=== PATIENT | male | born 1955 | race Caucasian/White ===

== ENCOUNTER → 2019-08-28 07:47 | Outpatient (BNVA) | payer MEDICARE, SELFPAY | PROVIDERS: PCP Internal Medicine; Referring Provider Licensed Practical Nurse; Visit Provider Psychiatry & Neurology Neurology | DX: M54.12 Radiculopathy, cervical region (principal); M79.601 Pain in right arm; M79.602 Pain in left arm | CPT/HCPCS: 95886; 95910 ==

== ENCOUNTER 2019-09-01 09:30 | Outpatient (RCR) | payer MEDICARE, SELFPAY | END 2019-09-04 23:59 | disposition home or self-care (01) | LOC: SPT 09:30 | PROVIDERS: PCP Internal Medicine; Referring Provider Licensed Practical Nurse; Visit Provider Licensed Practical Nurse | DX: M50.020 Cervical disc disorder with myelopathy, mid-cervical region, unspecified level (principal) | CPT/HCPCS: 97110; 97162 ==

== ENCOUNTER 2019-09-05 06:00 | Outpatient (RCR) | payer MEDICARE, SELFPAY | END 2019-10-03 23:59 | disposition home or self-care (01) | LOC: SPT 06:00 | PROVIDERS: PCP Internal Medicine; Referring Provider Licensed Practical Nurse; Visit Provider Licensed Practical Nurse | DX: M50.020 Cervical disc disorder with myelopathy, mid-cervical region, unspecified level (principal) | CPT/HCPCS: 97110 ==

== ENCOUNTER 2019-10-04 06:00 | Outpatient (RCR) | payer MEDICARE, SELFPAY | END 2019-11-03 23:59 | disposition home or self-care (01) | LOC: SPT 06:00 | PROVIDERS: PCP Internal Medicine; Referring Provider Licensed Practical Nurse; Visit Provider Licensed Practical Nurse | DX: M50.020 Cervical disc disorder with myelopathy, mid-cervical region, unspecified level (principal) | CPT/HCPCS: 97110; 97140 ==

== ENCOUNTER → 2021-07-06 17:37 | Outpatient (BNVA) | payer MEDICARE, SELFPAY | PROVIDERS: PCP Internal Medicine; Referring Provider Nurse Practitioner Family; Visit Provider Surgery | DX: Z20.822 Contact with and (suspected) exposure to COVID-19 (principal) | CPT/HCPCS: 87635 ==

== ENCOUNTER 2021-07-11 09:32 | Day surgery (SDC) | payer MEDICARE, SELFPAY ==
[2021-07-10 14:23] VITALS: BMI 24.6
[2021-07-11] VITALS (11 sets, daily range): BP systolic 135–179; BP diastolic 81–102; PULSE 71–84; RESP 14–20; TEMP 36.4–36.7; O2SAT 92–96
--- NOTE | 2021-07-11 10:08 | W.PM.OPSUD ---
Surgery/Procedure H&P Update DATE OF PROCEDURE: July 11, 2021 DATE H&P PERFORMED: 07/06/21 H&P UPDATE INFORMATION: I have reviewed H&P completed within last 30 days, I have examined patient prior to procedure and No changes to prior documentation PREOP DIAGNOSIS: Right Inguinal Hernia PRIMARY INDICATION FOR PROCEDURE: Right Inguinal Hernia PLANNED PROCEDURE: Operation Date: 07/11/21 11:25 Proposed Procedures p Laparoscopic poss Open Right Inguinal Hernia Repair 39863 K40.90(Right) - Anton Mata MD
[2021-07-11] MEDS: acetaminophen 1,000 MG/100 ML PIGGYBACK 400 MG IV (10:26)
[2021-07-11] MEDS: sodium chloride 0.9% 1,000 ML 30 ML IV (10:26)
--- NOTE | 2021-07-11 10:43 | ECG_ITS ---
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: : 1955 Requested By: Muriel Miller Order Number: [id number] Reading MD: KARISHMA LOOMIS Measurements Intervals Wenden Rate: 61 P: 64 NE: 129 QRS: 54 QRSD: 153 T: -39 QT: 455 QTc: 460 Interpretive Statements SINUS RHYTHM LEFT BUNDLE BRANCH BLOCK [120+ ms QRS DURATION, 80+ ms Q/S IN V1/V2, 85+ ms R IN I/aVL/V5/V6] Compared to ECG 02/11/2018 11:23:17 Sinus bradycardia no longer present Electronically Signed On 07-11-2021 20:09:27 LEAD ADVISOR by KARISHMA LOOMIS [id number]
--- NOTE | 2021-07-11 11:00 | P.ANESASSM_ITS ---
Pre-Anesthetic Assessment Pre-Anesthetic Assessment: Height/Weight: Height 1.85 m Weight 84.822 kg Temp Pulse Resp BP Pulse Ox 97.8 F 76 18 160/102 96 07/11/21 09:54 07/11/21 09:54 07/11/21 09:54 07/11/21 09:54 07/11/21 09:54 Preop Diagnosis: Right Inguinal Hernia Proposed Procedure: Operation Date: 07/11/21 11:25 Proposed Procedures p Laparoscopic poss Open Right Inguinal Hernia Repair [id number] K40.90(Right) - Anton Mata MD Was Beta Eber taken within 24 hours: Yes Was Clonidine taken within 24 hours: N/A Last intake: Intake Last Liquid Date 07/11/21 Last Liquid Time 06:00 Last Solid Date 07/10/21 Last Solid Time 21:00 Social: Social History: Tobacco and No alcohol Exam: Pre-Anes Outpt Exam: alert, oriented x 3, clear to auscultation bilaterally and regular rate & rhythm Airway: Submandibular: WNL Cervical ROM: WNL MP: 2 Dentition: Partials History/ROS: No significant history except as noted Pulmonary: Pulmonary: COPD and ANDREW CV/HEM: CV/HEM: CAD and TX : : None reported Hepatic: Hepatic: None reported GI: GI: GERD Metabolic: Metabolic: None reported Musc/skel: Musc/skel: None reported Comments: Cervical myelopathy Neuropsych: Comments: History of ocular stroke per patient Anesthetic Plan: ASA status: 3 Anesthesia: General and Regional (specify below) Other: Possible TAP block for post op pain control Risk of > 500 ml blood loss (7ml/kg in children): No Meds/Allergies Current Medications: Current Medications Generic Name Dose Route Start Last Admin Trade Name Freq PRN Reason Stop Dose Admin Sodium Chloride 1,000 mls @ 30 ml s/hr 07/11/21 09:45 07/11/21 10:26 Sodium Chloride 0.9% IV 07/12/21 09:44 30 mls/hr .Q24H ANDRE Administration PFSH Anesthesia PFSH: Medical History Cervical disc disorder with myelopathy of mid-cervical region Social History Smoking and tobacco status: current every day smoker Alcohol intake: never Lives independently: Yes Marital status: Life Partner Current occupational status: retired History of recent travel: No Data Anesthesia Cardiac Studies: No Data to Display
[2021-07-11] MEDS: clindamycin 900 MG/50 ML PREMIX 100 MG IV (12:00)
--- NOTE | 2021-07-11 13:49 | P.OP_ITS ---
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 Patient was identified in the holding area ,patient was transferred to the operating room where he was placed in supine position, with both arms were tucked, antibiotic was given with induction, endotracheal tube was placed per anesthesia, Delgadillo catheter was inserted by the circulating nurse and revealed clear urine, prep and drape of the abdomen was done under the usual sterile technique as well as the scrotal area. Time-out was done verifying the patient's name/date of /planned procedure destination after the procedure, all were in agreement. SCDs confirmed to be functioning, preoperative antibiotics administered per protocol, and beta brice protocol was confirmed. A vertical skin incision of 1.2 cm was made with 11 blade knife through the supra umbilicus , incision was carried down to the subcutaneous tissue and deepened to identify the anterior fascia, two stay sutures were applied to the fascia, and safe entrance to the abdominal cavity was achieved, a Stewart trocar technique safe entry to the abdominal cavity was achieved verified by using 10 mm zero degree laparoscopy, switched to a 30 degrees scope,low flow followed by a higher flow of CO2 gas up to 15 mmHg. There was no evidence of injury to intra-abdominal structures from the port entry, attention was deviated to both groins, there was a large direct hernia defect with herniation of peritoneum and preperitoneal fat was noted on the right side, two 5 mm ports were placed on the right and left lateral aspect of the abdomen slightly above the level of the umbilicus, under direct visualization, anesthesia 2% lidocaine local was injected at all trocar sites prior to incisions. Noticed to have adhesions between the small bowel cecum and the peritoneal reflection of the right groin obscuring the site of the right groin hernia, sharp and blunt dissection was done and the indentation of the preperitoneal fat was appreciated. At that point The peritoneum above the level of the iliopubic tract was incised to the right of the midline and dissection was performed to create a preperitoneal space medial to lateral aspect up to anterior superior iliac spine on the right side. Dissection was continued onto the medial aspect and the right spermatic was identified, there was evidence of direct and indirect inguinal hernia .the sac was dissected. As it applied medial to the right inferior epigastric vessels/ dissection was performed to clear the space lateral to the spermatic cord and dorsomedial to it, the hernia sac was reduced and retracted far back.The small indirect inguinal hernia that was dissected in addition to lipoma of the cord that was excised and sent for permanent pathology. Some oozing revealed towards the medial aspect of the dissection and multiple 5 mm clips were applied, suction irrigation was done. Then a large right 3-D mesh was rolled and placed into the abdominal cavity through the Stewart port, after the mesh was introduced it was positioned to lie in the myopectineal orifice and the mesh was unrolled and this covered the entire my myope pectineal orifice. On the lateral aspect of the mesh extended up to the anterior superior iliac spine on the medial aspect the mesh crossed the midline onto the left side, then using absorbable tacks, placed above the iliopubic tract onto the rectus abdominis muscle on the medial aspect and also to the lateral abdominal wall superomedial to the sacroiliac spine, then the mesh was also anchored to the pubis and the José's ligament inferiorly. The peritoneal leaflets were then brought together to cover the mesh and isolated from the other viscera, extra tacks were used to secure the peritoneum in good position. There was small openings in the peritoneal reflection that were approximated by 5 mm clear Final look demonstrated good hemostasis and the mesh in good position, there was a small subserosal hematoma over one of the small bowel loops at the serosa level yet I elected to apply oeywla-yx-gyyki 2-0 silk suture. A total of 20 mL Exparel 40 ml Normal saline 20 ml bupivacaine 0.25% were injected at the remaining of the tacks site and trocar sites as well Final look demonstrated good hemostasis.Then the fascia on the supra umbilical fascial defect was closed using #1 PDS sutures under direct visualization using fascial closure device Leland Schmid.All ports were removed,then the abdomen was desufflated. All skin incisions were closed with 4-0 Monocryl subcuticular suture and Dermabond was applied. The patient tolerated the procedure well, Delgadillo catheter was taken out ,got extubated and was transferred to the recovery area in stable condition All counts of instruments, needles and sponges were completed I was present for the whole entire procedure
[2021-07-11] MEDS: fentaNYL 50 mcg/mL INJ 2mL IVP ×2 (14:14→14:19)
[2021-07-11] MEDS: HYDROcodone-acetaminophen 5-325 mg Tablet 1 TAB PO (14:57)
--- NOTE | 2021-07-11 15:54 | ANE.PACU2 ---
Inpatient post-anesthesia follow up: Airway intact: Yes Vital signs: Temperature 97.8 F Pulse Rate 75 Respiratory Rate 17 Blood Pressure 135/82 Pulse Oximetry 95 Oxygen Delivery Me thod Room Air Oxygen Flow Rate Fraction of Inspir ed Oxygen Hydration adequate: Yes Nausea and vomiting: No Pain level: 4 Mental status: Baseline
== END 2021-07-11 15:42 | disposition home or self-care (01) ==
PROVIDERS: PCP Internal Medicine; Visit Provider Surgery
PROC: (CPT 49650; principal; 2021-07-11 11:15)
DX: K40.90 Unilateral inguinal hernia, without obstruction or gangrene, not specified as recurrent (principal); D17.6 Benign lipomatous neoplasm of spermatic cord; J44.9 Chronic obstructive pulmonary disease, unspecified; I25.10 Atherosclerotic heart disease of native coronary artery without angina pectoris; I25.2 Old myocardial infarction; K21.9 Gastro-esophageal reflux disease without esophagitis; F17.210 Nicotine dependence, cigarettes, uncomplicated
CPT/HCPCS: 49650; 51702; 88302; 88304; 93005; 96365; C1781; C9290; J2405; J2704; J2710; J3010; J3490; J7030

== ENCOUNTER 2021-10-30 09:46 | Outpatient (CLI) | payer MEDICARE, SELFPAY ==
--- NOTE | 2021-10-30 10:03 | USCV_ITS ---
Fer Charles Age: 65 Gender: M : 1955 Exam Date: 10/30/2021 10:19 Ordering Phys: Pankaj Richardosn NP Technologist: Juan Daniel Acevedo [place] [facility] [place]: [place] HISTORY: Diameter (cm) AP x Transverse x Length Velocity (cm/s) Waveform Prox Aorta: 1.87 x 1.84 x 101.20 Mid Aorta: 2.16 x 2.13 x 105.30 Distal Aorta: 3.17 x 3.14 x 76.80 Right Iliac Prox: 0.76 x 1.18 x 153.90 Left Iliac Prox: 0.79 x 1.24 x 124.70 Stent Prox Landing x x Aneurysmal Sac Max x x Lt Lat Sac Dim Rt Lat Sac Dim Stent Dist Landing x x Right Iliac Stent x x Left Iliac Stent x x Right Renal Art Left Renal Art FINDINGS: Comparison: none available. Ectatic abdominal aorta with evidence of atherosclerotic plaque noted. There is evidence of atherosclerotic plaque no significan stenosis in the right common iliac artery. There is evidence of atherosclerotic plaque no significan stenosis in the left common iliac artery. Mild aneurysmal dilatation infrarenal aorta, maximum diameter of 3.2 cm. CONCLUSIONS Mild AAA, maximim diameter of 3.[address] Louise Kumar DO (Electronically Signed) Final Date: 30 October 2021 12:30 S
== END 2021-10-30 09:47 | disposition home or self-care (01) ==
PROVIDERS: PCP Nurse Practitioner Family; Visit Provider Nurse Practitioner Family
DX: I71.4 Abdominal aortic aneurysm, without rupture (principal)
CPT/HCPCS: 93978

== ENCOUNTER → 2022-03-12 14:43 | Outpatient (BNVA) | payer MEDICARE, SELFPAY | PROVIDERS: PCP Nurse Practitioner Family; Referring Provider Nurse Practitioner Family; Visit Provider Nurse Practitioner | DX: G31.84 Mild cognitive impairment of uncertain or unknown etiology (principal); R26.89 Other abnormalities of gait and mobility; M50.020 Cervical disc disorder with myelopathy, mid-cervical region, unspecified level | CPT/HCPCS: 99204 ==

== ENCOUNTER → 2022-03-19 15:17 | Outpatient (BNVA) | payer MEDICARE, SELFPAY | PROVIDERS: PCP Nurse Practitioner Family; Visit Provider Surgery | DX: R19.5 Other fecal abnormalities (principal) | CPT/HCPCS: 99213 ==

== ENCOUNTER 2022-04-20 06:16 | Day surgery (SDC) | payer MEDICARE, SELFPAY ==
[2022-04-18 13:16] VITALS: BMI 25.0
--- NOTE | 2022-04-20 06:29 | P.HP_ITS ---
Same Day Surgery H&P Indication for Procedure/HPI DATE OF PROCEDURE: April 20, 2022 CHIEF COMPLAINT/INDICATIONFOR SURGICAL PROCEDURE: Blood in stool PREOP DIAGNOSIS: Occult blood positive in stool PLANNED PROCEDURE: Operation Date: 04/20/22 08:00 Proposed Procedures p Colonoscopy 62756,Z12.11(Not Applicable) - Anton Mata MD 03/19/2022 This is a pleasant 66 years old gentleman known to me from previous clinical encounter where he did undergo laparoscopic inguinal hernia repair back in July 2020 one of the right side also a lipoma of the right spermatic cord was excised at the time, patient was found to have occult blood positive in stool and was referred to me to discuss colonoscopy. 04/20/2022 Patient is coming today for screening colonoscopy ROS All systems have been reviewed negative except as for the above or per problem list. Medications/Allergies* Home Medications Medication Instructions Recorded Confirmed Type gabapentin 800 mg tablet 800 mg PO DAILY 12/01/19 04/20/22 History trazodone 150 mg tablet 150 mg PO DAILY 12/01/19 04/20/22 History simvastatin 40 mg tablet 40 mg PO DAILY 04/21/20 04/20/22 History tramadol 50 mg tablet 50 mg PO DAILY 07/06/21 04/20/22 History clopidogrel 75 mg tablet (Plavix) 75 mg PO DAILY 07/10/21 04/18/22 History lisinopril 10 mg tablet 10 mg PO DAILY 04/18/22 04/20/22 History Allergies/Adverse Reactions Allergy/AdvReac Type Severity Reaction Status Date / Time Penicillins Allergy Intermediate Passed out Verified 04/20/22 06:30 Pertinent History/Comorbid Conditions* Medical History (Updated 03/23/22 @ 06:29 by Anton Mata MD) Cervical disc disorder with myelopathy of mid-cervical region Gait disorder Mild cognitive impairment Right groin hernia Social History Smoking and tobacco status: current every day smoker Alcohol intake: never Lives independently: Yes Marital status: Life Partner Current occupational status: retired History of recent travel: No Pertinent Exam Findings alert, oriented x 3, regular rate & rhythm and procedure specific exam findings (Abdominal exam nontender nondistended soft) Recommendations Surgery/Procedure today (Colonoscopy with possible biopsy) Coding Level of Care Code Acute 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
[2022-04-20 06:41] VITALS: BP 145/79; PULSE 74; RESP 16; TEMP 36.3; O2SAT 96
[2022-04-20] MEDS: sodium chloride 0.9% 1,000 ML 30 ML IV (06:48)
--- NOTE | 2022-04-20 07:30 | ANES.PREANE2 ---
Pre-Anesthetic Assessment Height/Weight: Height 1.83 m Weight 83.915 kg Temp Pulse Resp BP Pulse Ox O2 Del Method 97.4 F L 74 16 145/79 96 04/20/22 06:41 04/20/22 06:41 04/20/22 06:41 04/20/22 06:41 04/20/22 06:41 04/20/22 06:41 Preop Diagnosis: Occult blood positive in stool Operation Date: 04/20/22 08:00 Proposed Procedures p Colonoscopy 21164,Z12.11(Not Applicable) - Anton Mata MD Familial anesthetic complications: None Was Beta Eber taken within 24 hours: N/A Was Clonidine taken within 24 hours: N/A Last intake: Intake Last Liquid Date 04/19/22 Last Liquid Time 17:00 Last Solid Date 04/18/22 Last Solid Time 00:00 Social No alcohol and No tobacco Exam alert, oriented x 3, clear to auscultation bilaterally and regular rate & rhythm Airway Submandibular: within normal limits Cervical ROM: within normal limits Mallampati: Class II Dentition: false Pulmonary Chronic Obstructive Pulmonary Disease CV/HEM Coronary Artery Disease (Hx of stents ) and Myocardial Infarction Vascular US 10/30/21 ?CONCLUSIONS ?Mild AAA, maximim diameter of 3.2 cm. None reported Hepatic None reported GI None reported Metabolic None reported Musc/skel None reported Neuropsych Cervical myelopathy Anesthetic Plan ASA status: 3 Anesthesia: Anesthesia Evaluation, General and MAC Other: I discussed with the patient risks, goals, and benefits of MAC and general anesthesia. We discussed spectrum of MAC anesthesia including conversion to general as well as possibility of recall of intraoperative stimuli including discomfort/pain. Patient agrees to proceed with MAC. Risk of > 500 ml blood loss (7ml/kg in children): No Medications/Allergies Home Medications Medication Instructions Recorded Confirmed Last Taken Type gabapentin 800 mg tablet 800 mg PO DAILY 12/01/19 04/20/22 04/19/22 History trazodone 150 mg tablet 150 mg PO DAILY 12/01/19 04/20/22 04/19/22 History simvastatin 40 mg tablet 40 mg PO DAILY 04/21/20 04/20/22 04/19/22 History tramadol 50 mg tablet 50 mg PO DAILY 07/06/21 04/20/22 04/19/22 History clopidogrel 75 mg tablet (Plavix) 75 mg PO DAILY 07/10/21 04/18/22 04/18/22 History lisinopril 10 mg tablet 10 mg PO DAILY 04/18/22 04/20/22 04/19/22 History Allergies Allergy/AdvReac Type Severity Reaction Status Date / Time Penicillins Allergy Intermediate Passed out Verified 04/20/22 06:30 Current Medications Generic Name Dose Route Start Last Admin Trade Name Freq PRN Reason Stop Dose Admin Sodium Chloride 1,000 mls @ 30 mls/hr 04/20/22 06:30 04/20/22 06:48 Sodium Chloride 0.9% IV 04/21/22 06:29 30 mls/hr .Q24H ANDRE Administration PFSH Anesthesia Medical History Cervical disc disorder with myelopathy of mid-cervical region Gait disorder Mild cognitive impairment Right groin hernia Social History Smoking and tobacco status: current every day smoker Alcohol intake: never Lives independently: Yes Marital status: Life Partner Current occupational status: retired History of recent travel: No Data Anesthesia Cardiac Studies: No Data to Display
[2022-04-20 08:32] VITALS: BP 146/68; PULSE 54; RESP 14; TEMP 36.2; O2SAT 95
[2022-04-20 08:45] VITALS: BP 150/78; PULSE 56; RESP 20; O2SAT 94
--- NOTE | 2022-04-20 08:52 | ANE.PACU2 ---
Inpatient post-anesthesia follow up: Airway intact: Yes Vital signs: Temperature 97.1 F Pulse Rate 56 Respiratory Rate 20 Blood Pressure 150/78 Pulse Oximetry 94 Oxygen Delivery Me thod Room Air Oxygen Flow Rate Fraction of Inspir ed Oxygen Hydration adequate: Yes Nausea and vomiting: No Pain level: 1 Mental status: Baseline
== END 2022-04-20 08:57 | disposition home or self-care (01) ==
PROVIDERS: PCP Nurse Practitioner Family; Visit Provider Surgery
PROC: 0DJD8ZZ Inspection of Lower Intestinal Tract, Via Natural or Artificial Opening Endoscopic (ICD-10-PCS; CPT 45378; principal; 2022-04-20 08:00)
DX: Z12.11 Encounter for screening for malignant neoplasm of colon (principal); K57.30 Diverticulosis of large intestine without perforation or abscess without bleeding; J44.9 Chronic obstructive pulmonary disease, unspecified; I25.10 Atherosclerotic heart disease of native coronary artery without angina pectoris; Z95.5 Presence of coronary angioplasty implant and graft; I25.2 Old myocardial infarction; F17.210 Nicotine dependence, cigarettes, uncomplicated
CPT/HCPCS: 45378; J2704; J7030

== ENCOUNTER 2022-08-24 07:06 | Outpatient (CLI) | payer MEDICARE, SELFPAY ==
--- NOTE | 2022-08-24 | MR_ITS ---
WS: [id number] MRI RIGHT HIP NONCONTRAST TECHNIQUE: Axial T1, axial T2 fat sat, coronal T1, coronal STIR, sagittal T2 fat sat, sagittal T1, an d sagittal T2 fat sat, of both hips. CLINICAL INFORMATION: RT HIP PAIN COMPARISON: None. FINDINGS: Normal bone marrow signal in the RIGHT hip and acetabulum. No acute fractures. No bone marrow edema. Mild degenerative narrowing RIGHT hip. Mild degenerative narrowing LEFT hip. Normal bone marrow signa l in the sacrum and ilium. No acute sacral fractures. Normal visualized pubic rami. Mild degenerative arthritis sacroiliac joints. Partially visualized low signal sclerotic lesion adjacent to the SI joint likely benign bone island o r degenerative sclerosis. Partially visualized sigmoid diverticulosis. MR/MR hip RT wo con* [id number] IMPRESSION: 1. Normal bone marrow signal in the RIGHT femoral head and neck. No acute frac tures. No evidence of avascular necrosis. 2. Larger narrowing both hips. 3. Sigmoid diverticulosis. 4. No other suspicious findings.
== END 2022-08-24 07:07 | disposition home or self-care (01) ==
PROVIDERS: PCP Nurse Practitioner Family; Visit Provider Nurse Practitioner Family
DX: M25.551 Pain in right hip (principal); K57.30 Diverticulosis of large intestine without perforation or abscess without bleeding
CPT/HCPCS: 73721

== ENCOUNTER → 2023-01-31 11:42 | Outpatient (BNVA) | payer MEDICARE, SELFPAY | PROVIDERS: PCP Nurse Practitioner Family; Visit Provider Internal Medicine Cardiovascular Disease | DX: Z09 Encounter for follow-up examination after completed treatment for conditions other than malignant neoplasm (principal); R07.9 Chest pain, unspecified; I44.7 Left bundle-branch block, unspecified; I25.10 Atherosclerotic heart disease of native coronary artery without angina pectoris; E78.5 Hyperlipidemia, unspecified; F17.200 Nicotine dependence, unspecified, uncomplicated; Z86.73 Personal history of transient ischemic attack (TIA), and cerebral infarction without residual deficits; R00.1 Bradycardia, unspecified | CPT/HCPCS: 93005; 99204 ==

== ENCOUNTER 2023-02-20 09:13 | Outpatient (CLI) | payer MEDICARE, SELFPAY ==
--- NOTE | 2023-02-20 09:30 | USCV_ITS ---
Fer Charles Age: 67 Gender: M : 1955 Exam Date: 02/20/2023 09:30 Ordering Phys: Jona Sims MD ([email or web address]) Technologist: Exam Location: [facility] [place] Indication: murmur BP: 134 / 73 HR: 62 Rhythm: Sinus Technical Quality: Adequate MEASUREMENTS (Male / Female) Normal Values 2D ECHO LV Diastolic Diameter PLAX 6.1 cm 4.2 - 5.9 / 3.9 - 5.3 cm LV Systolic Diameter PLAX 5.0 cm IVS Diastolic Thickness 1.1 cm 0.6 - 1.0 / 0.6 - 0.9 cm IVS Systolic Thickness 1.1 cm LVPW Diastolic Thickness 1.2 cm 0.6 - 1.0 / 0.6 - 0.9 cm LVPW Systolic Thickness 1.4 cm LVOT Diameter 2.0 cm LV Ejection Fraction 2D Teich 36.4 % LV Ejection Fraction MOD 2C 27.2 % LV Ejection Fraction 2C AL 29.4 % LA Diameter 3.8 cm IVC Diameter 1.4 cm M-MODE Aortic Annulus Diameter 3.5 cm LA Ao Ratio MM 1.1 MV E Point Septal Separation 2.4 cm DOPPLER AV Peak Velocity 131.0 cm/s LVOT Peak Velocity 80.0 cm/s AV Area Cont Eq vti 1.9 cm squared AV Area Cont Eq pk 2.0 cm squared MV Area PHT 2.2 cm squared Mitral E to A Ratio 0.7 MV E' Velocity 33.5 cm/s Mitral E to MV E' Ratio 12.0 Mitral E to LV E' Lateral Ratio 9.8 Mitral E to LV E' Septal Ratio 16.2 TR Peak Velocity 175.0 cm/s TR Peak Gradient 12.3 mmHg TV Peak E Velocity 85.0 cm/s Right Atrial Pressure 3.0 mmHg Pulmonary Artery Systolic Pressu 15.3 mmHg RV Acceleration Time 0.1 s FINDINGS Left Ventricle Mildly dilated LV cavity with a moderately depressed ejection fraction of 30% (visual). Diffuse hypokinesia of the left to undergo.Grade I/IV diastolic dysfunction (abnormal relaxation filling pattern), normal to mildly elevated filling pressures. Right Ventricle Normal right ventricular size and systolic function. Right Atrium Normal right atrial size. Left Atrium Mildly increased left atrial size. Mitral Valve Thickened mitral valve. Trace to mild mitral valve regurgitation. Aortic Valve Thickened aortic valve. Tricuspid Valve Trace tricuspid valve regurgitation. Pulmonic Valve Thickened pulmonic valve. Pericardium Aorta Normal aortic annulus size. IVC Normal inferior vena cava. CONCLUSIONS Mildly dilated LV cavity with a moderately depressed ejection fraction of 30% (visual). Diffuse hypokinesia of the left to undergo.Grade I/IV diastolic dysfunction (abnormal relaxation filling pattern), normal to mildly elevated filling pressures. Mildly increased left atrial size. Thickened aortic and mitral valves. Trace to mild mitral valve regurgitation. Thickened pulmonic valve. Trace tricuspid valve regurgitation. Estimated pulmonary artery peak systolic pressure, possibly within normal limits There is no pericardial effusion. There are no intracardiac masses. Compared to the study from 02/11/2018, ejection fraction has decreased from 40% to 30% Dr Jona Sims MD [facility] (Electronically Signed) Final Date: 26 February 2023 00:30 S
--- NOTE | 2023-02-20 10:15 | USCV_ITS ---
Fer Charles Age: 67 Gender: M : 1955 Exam Date: 02/20/2023 09:44 Ordering Phys: Jona Sims MD ([email or web address]) Technologist: Exam Location: [facility] – [place] Indication: cca disease Risk Factors: Previous Vascular Surgery: Right Brachial BP: / Left Brachial BP: / Right Left Velocity (cm/s) Spectral Plaque Velocity (cm/s) Spectral Plaque Syst/Diast Broadening Syst/Diast Broadening 45.40/ 9.90 Prox CCA 70.10 / 16.20 44.40/ 10.55 Hetro Mid CCA 84.60 / 20.50 Hetro 34.20/ 8.50 Hetro Distal CCA 84.60 / 18.80 Hetro 52.60/ 16.40 Hetro Prox ICA 72.60 / 17.10 Hetro 46.70/ 17.70 Hetro Mid ICA 70.90 / 15.40 Hetro 55.87/ 17.53 Distal ICA 68.80 / 16.65 84.80 ECA 97.40 1.21 ICA/CCA 0.86 Antegrade Vertebral Antegrade 46.00/ 10.50 cm/s 34.20/ 11.10 cm/s Tri Subclavian Tri 103.0 99.00 0 FINDINGS Moderate heterogenous plaquesa t at the right bifurcation and proximal internal carotid artery. Minimal plaques of the left bifurcation and internal carotid artery. Antegrade flow in the vertebral arteries bilaterally. Normal Doppler flow velocities in the external carotid and subclavian arteries bilaterally CONCLUSIONS Moderate heterogenous plaquesa t at the right bifurcation and proximal internal carotid artery with the Doppler features suggesting less than 50% stenosis Minimal plaques at the left bifurcation and internal carotid artery with a Doppler features suggesting less than 50% stenosis. Compared to the study from 05/31/2013, there appears to have more plaque burden on the right side Dr Jona Sims MD [facility] (Electronically Signed) Final Date: 26 February 2023 07:51 S
== END 2023-02-20 09:14 | disposition home or self-care (01) ==
PROVIDERS: PCP Nurse Practitioner Family; Visit Provider Internal Medicine Cardiovascular Disease
DX: R06.09 Other forms of dyspnea (principal); I77.9 Disorder of arteries and arterioles, unspecified; Z09 Encounter for follow-up examination after completed treatment for conditions other than malignant neoplasm
CPT/HCPCS: 93306; 93880

== ENCOUNTER → 2023-03-14 10:21 | Outpatient (BNVA) | payer MEDICARE, SELFPAY | PROVIDERS: PCP Nurse Practitioner Family; Visit Provider Internal Medicine Cardiovascular Disease | DX: I25.10 Atherosclerotic heart disease of native coronary artery without angina pectoris (principal); F17.200 Nicotine dependence, unspecified, uncomplicated; E78.5 Hyperlipidemia, unspecified; I25.5 Ischemic cardiomyopathy; I65.29 Occlusion and stenosis of unspecified carotid artery; I10 Essential (primary) hypertension | CPT/HCPCS: 99215 ==

== ENCOUNTER 2023-04-03 08:35 | Outpatient (CLI) | payer MEDICARE, SELFPAY ==
--- NOTE | 2023-04-03 | ECG_ITS ---
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 Interpretive Statements NAME OF STUDY: LEXISCAN SESTAMIBI STRESS TEST INDICATION: Cardiomyopathy, PROCEDURE: At the baseline, the EKG revealed sinus bradycardia with left bundle branch block. Diffuse ST-T changes, possibly secondary to the LBBB.. The baseline heart was 54 bpm with a blood pressue of 141/81 mm of Hg Lexiscan was infused over a period of 20 seconds. A total of 0.4 milligrams of Lexiscan was infused. The stress phase was continued for a total of 5 minutes. Heart rate at the end of the stress phase was 78 bpm with a blood pressure 152/85 mm of Hg. The EKG at the peak infusion revealed no significant changes. Sestamibi was injected 20 seconds after the Lexiscan infusion. Heart rate at the end of the recovery phase was 78 bpm with a blood pressure of 152/86 mm of Hg. CONCLUSION: 1. No significant EKG changes with the LexiScan infusion 2. No LexiScan induced chest pain or cardiac arrhythmia 3. Normal blood pressure and heart rate response 4. Sestamibi/sestamibi perfusion scan pending; see separate report. Electronically Signed On 04-03-2023 14:57:57 CDT by Jona Sims M.D. [email or web address]
[2023-04-03 09:07] VITALS: BMI 25.3
--- NOTE | 2023-04-03 09:28 | NMCV_ITS ---
NM jose enrique perf SPECT r/s* [id number] Fer Charles Age: 67 Gender: M : 1955 Exam Date: 04/03/2023 10:10 Ordering Phys: Jona Sims MD ([email or web address]) Technologist: MICHELLE Martinez Exam Location: [facility] Indications: CHEST PAIN STRESS TEST [facility] IMAGE PROTOCOL Rest/Stress 1 Lexiscan Day Radiopharmaceutical Dose (mCi) Administration Site Administered by Rest: Tc-99m 10.9 IV MICHELLE Diamond Sestamibi Stress:Tc-99m 32.7 IV MICHELLE Diamond Sestamibi Rest: 03-Apr-2023 60 Discovery 630 Stress: 03-Apr-2023 30 Discovery 630 0.4mg Lexiscan. Images obtained in supine and prone position. SPECT RESULTS Technical Quality: Excellent Raw Data Analysis: Normal Image Corrections: No attenuation or motion correction applied Summed Stress Score: 12 Summed Rest Score: 7 Summed Difference Score: 8 PERFUSION FINDINGS Moderate area of moderately decreased aseptic was noted in the basal, mid and apical inferior, basal and mid inferolateral, apical lateral and LV apex. Significant reversibility was noted in these regions. FUNCTIONAL RESULTS (calculated via Gated SPECT) Stress Image LV EF (%): 31 Stress EDV (mL):183 TID: 0.86 Stress ESV (mL):126 FUNCTIONAL FINDINGS: Segmental wall motion analysis revealed diffuse hypokinesia of the left ventricle. LV cavity is moderately dilated. IMPRESSIONS 1. Myocardial perfusion imaging revealing moderate area of reversible defect involving the inferior and inferior wall regions, suggestive of ischemia in the distribution of the right coronary artery/circumflex artery. 2. Diminished LV ejection fraction of 31%. 3. LV wall motion analysis revealing diffuse hypokinesia of the left ventricle. 4. Mildly dilated LV cavity with an end-systolic volume of 126 ml No similar previous studies are available for comparison Dr Jona Sims MD FAC (Electronically Signed) Final Date: 03 April 2023 16:24 S
[2023-04-03] MEDS: regadenoson 0.4 Mg/5 ml Syringe IVP (10:45)
[2023-04-03 11:00] VITALS: BP 152/86; PULSE 78
== END 2023-04-03 08:36 | disposition home or self-care (01) ==
LOC: RAD 08:40 → CDL 09:06
PROVIDERS: PCP Nurse Practitioner Family; Visit Provider Internal Medicine Cardiovascular Disease
DX: I42.9 Cardiomyopathy, unspecified (principal); R07.9 Chest pain, unspecified
CPT/HCPCS: 36415; 78452; 93017; 96374; A9500; J2785

== ENCOUNTER 2023-05-26 13:26 | Emergency (ER) | payer MEDICARE, SELFPAY ==
[2023-05-26 13:43] VITALS: BP 126/65; PULSE 65; RESP 16; TEMP 36.7; O2SAT 95; BMI 24.1
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
[2023-05-26 14:56] LABS: Basophils # 0.1 10^3/uL (0.0-0.1); Basophils % 1.3 %; Eosinophils # 0.3 10^3/uL (0.0-0.8); Eosinophils % 6.5 %; Hematocrit 44.4 % (37-53); Lymphocytes # 1.6 10^3/uL (0.8-4.8); Lymphocytes % 29.6 %; Mean Corpuscular HGB Conc 33.6 g/dL (30-55); Mean Corpuscular Hemoglobin 29.6 pg (27-33); Mean Corpuscular Volume 88.3 fl (82-101); Mean Platelet Volume 10.9 fL (7.4-10.4); Monocytes # 0.5 10^3/uL (0.2-0.9); Monocytes % 8.8 %; Neutrophils # 2.81 10^3/uL (1.8-7.7); Neutrophils % 53.6 %; Nucleated Red Blood Cells % 0 %; Platelet Count 205 10^3/cmm (157-399); Red Blood Count 5.03 10^6/uL (3.85-5.65); Red Cell Distribution Width 13.2 % (12.1-15.1); White Blood Count 5.24 10^3/uL (3.29-11.43)
[2023-05-26 15:11] LABS: Alanine Aminotransferase 19 U/L (0-41); Albumin Level 4.4 g/dL (3.5-5.2); Alkaline Phosphatase 58 U/L (40-130); Anion Gap 11.4 (5-19); Aspartate Amino Transferase 17 U/L (0-40); Blood Urea Nitrogen 17 mg/dL (8-23); Calcium 9.3 mg/dL (8.5-10.5); Carbon Dioxide 27 mmol/L (22-29); Chloride 102 mmol/L (98-107); Globulin 2.3 g/dL (1.3-4.6); Glomerular Filtration Rate 74.3 mL/min (90-130); Glucose 90 mg/dL (65-115); Osmolality Calculated 283 mOsm/kg (285-295); Potassium 4.4 mmol/L (3.5-5.1); Sodium 136 mmol/L (136-145); Total Bilirubin 0.2 mg/dL (0.15-1.2); Total Protein 6.7 g/dL (6.6-8.7)
[2023-05-26 15:46] VITALS: BP 126/65; PULSE 65; RESP 16; TEMP 36.7; O2SAT 95
== END 2023-05-26 15:58 | disposition home or self-care (01) ==
PROVIDERS: Emergency Provider Family Medicine; PCP Nurse Practitioner Family
DX: S39.012A Strain of muscle, fascia and tendon of lower back, initial encounter (principal); M54.2 Cervicalgia; Z79.02 Long term (current) use of antithrombotics/antiplatelets; Z79.82 Long term (current) use of aspirin; J44.9 Chronic obstructive pulmonary disease, unspecified; I10 Essential (primary) hypertension; I25.2 Old myocardial infarction; Z86.73 Personal history of transient ischemic attack (TIA), and cerebral infarction without residual deficits; F17.210 Nicotine dependence, cigarettes, uncomplicated; V89.2XXA Person injured in unspecified motor-vehicle accident, traffic, initial encounter
CPT/HCPCS: 36415; 72040; 72100; 80053; 85025; 99284

== ENCOUNTER 2023-05-28 05:38 | Outpatient (CLI) | payer MEDICARE, SELFPAY ==
[2023-05-28] VITALS (9 sets, daily range): BP systolic 117–151; BP diastolic 57–81; PULSE 50–67; RESP 12–16; TEMP 37.1; O2SAT 95–97; BMI 24.1
--- NOTE | 2023-05-28 06:00 | XACV_ITS ---
Exam Room: 2 Ht: 183 cm Wt: 81 kg BSA: 2.03 m2 Gender: Male : 1955 Any Known Allergies: Penicillins Exam Priority: Routine Procedure(s): Procedure Description: Diagnostic procedure Procedure Description: Left Heart Catheterization Procedure Description: Left ventriculography Procedure Description: Coronary Angiography Levi SAMANIEGO; Diagnostic Cath Status: Elective Diagnostic Findings * Indication: LV dysfunction/ dyspnea on exertion/ abnormal stress test. * Left Main: minimal 20% stenosis, ROSALINE: 3 flow. * Left Anterior Descending has moderate luminal irregularities. * Circumflex has mild to moderate luminal irregularities. OM 2 has chronic total occlusion with left to left collaterals. * Right Coronary Artery has patent prior stents with no significant disease. * Second Obtuse Marginal Branch Segment: total occlusion, ROSALINE: 0 flow. * Coronary angiography shows right dominance. Conclusions 1. Chronic total occlusion of OM 2. Otherwise non-obstructive coronary artery disease. 2. Moderate left ventricular systolic dysfunction. Ejection fraction of 35%. Recommendations * Aggressive risk factor modification. * Outpatient cardiology follow up in 2-4 weeks. Interventional RX Recommendation: medical therapy and/or counseling Diagnostic RX Recommendation: medical therapy and/or counseling Anticoagulation: Heparin Ventriculography Ejection Fraction: 35.0 % Pressures Phase:Rest AO : 142 / 82 ( 106 ) @ 9:14:00 AM 140 / 82 ( 105 ) @ 9:14:00 AM LV : 131 / 3 / 11 @ 9:13:00 AM 133 / 3 / 13 @ 9:14:00 AM 135 / 4 / 13 @ 9:14:00 AM Valves Phase:DefaultPhase AV : 0.0 @ 8:18:59 AM AV Mean Gradient: 0.0 @ 8:18:59 AM Clinical Evaluation EBL: 5mL-10mL Procedural Details Procedure Consent Obtained. Admit Source: Out Patient. Pre-Procedure Time Out. Identified patient by full name and date of as verbalized by the patient/guarantor. Does the consent match the physician's order: Yes. Accurate & Complete Informed Consent: Yes. If H&P is completed, is and addenduem needed: Yes; If yes, is the addendum complete: Yes. Visualize and Verify Site with Patient/Guarantor: N/A. Relevant Radiology Images available: Yes. The risks, benefits, and alternatives of sedation and/or procedure were discussed by physician. The patient agrees to continue. Procedure started. [facility] Clinical Fraility Score: 3: Managing Well. Military Technician Indications: LV Dysfunction. Chest Pain Symptom Assessment: Atypical Angina. Correct patient, site and procedure confirmed by cath team. Current diagnosis: Stable angina, Dyspnea on exertion, Abnormal stress test. PERRLA. Strong, equal hand texturing machine fixer bilaterally. Lungs clear x 5 lobes. IV Site on Arrival: 20 gauge in the right anticubital. IV Fluids: 0.9% NaCl at 75ml/hr. 0 mL infused prior to catheter finisher and inspector. Pre Procedural Pulses: bilateral posterior tibial was 3+. Pre Procedural Pulses: bilateral dorsalis pedis was 2+. Pre Procedural Pulses: bilateral radial was 3+. Oxygen started at 2liters/min via nasal canula. right radial was prepped with chloroprep then draped in the usual sterile fashion. right groin was prepped with chloroprep then draped in the usual sterile fashion. Physician notified. Baseline sample Acquired. HR: 62 BPM. Physician arrived. Physician scrubbed in. Immediate Pre-Procedure Time Out. Correct Patient: Yes; Correct Procedure: Yes; Correct Site: Yes; Correct Patient Position: Yes; Correct Supplies: Yes; Dried Flammable Prep: Yes; Blood Products Available: No. Lidocaine 1% infiltrated to the right radial. Arterial access obtained. A 5 eritrean TIG catheter in over wire. Multiple views taken of left coronary artery. Catheter redirected to the RCA. Multiple views taken of right coronary artery. Catheter removed over the exchange wire. A 5 eritrean Angled Pig catheter in over wire. EDP Sample taken: LV 131/3,11; HR: 68 BPM; SpO2: 97%. LV gram performed in OROPEZA @ 10 mL/second for a total of 30 mL. EDP Sample taken: LV 133/3,13; HR: 69 BPM; SpO2: 97%. Pullback taken: LV 135/4,13; AO 142/82(106); Mean: 0mmHg, Peak to Peak: 0mmHg, SEP: 6sec/min; HR: 67 BPM; SpO2: 96%. Catheter removed over the exchange wire. A TR Band was successful obtaining hemostatsis at the Right Radial artery insertion site. Physician scrubbed out. Post Procedure: Pulses reassessed and unchanged. PERRLA. Strong, equal hand texturing machine fixer bilaterally. No VTE prophylaxis required. Medication's Wasted: Lidocaine 1% = 1 mL. Medication's Wasted: Nitro = 49.8 mg. Medication's Wasted: Heparin = 1000 units. Total IV fluids: 18 mL. 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 Complications: None. Estimated blood loss: 5mL-10mL. Responsiveness - Normal response to verbal stimuli; alert and oriented, PERRLA. Airway - Unaffected, no intervention required; spontaneous ventilation. Circulation: W/N/L, pulses unchanged. Nausea/Vomiting: No. Procedure completed. Patient transferred by wheelchair to CPRU. Vital chart was stopped. Access Site Site: Right Radial artery Sheath Size: 6 Fr Hemostasis Method: TR Band Hemostasis Success: Successful Procedure Medications Start: 7:59 AM Stop: 7:59 AM Medication: Versed Amount: 1 mg Route: I.V. Start: 7:59 AM Stop: 7:59 AM Medication: Fentanyl Amount: 50 mcg Route: I.V. Start: 8:04 AM Stop: 8:04 AM Medication: Versed Amount: 1 mg Route: I.V. Start: 8:04 AM Stop: 8:04 AM Medication: Fentanyl Amount: 25 mcg Route: I.V. Start: 8:05 AM Stop: 8:05 AM Medication: Nitrogylcerin Amount: 200 mcg Route: I.A. Start: 8:06 AM Stop: 8:06 AM Medication: Heparin Amount: 5000 units Route: I.V. Start: 8:07 AM Stop: 8:07 AM Medication: Fentanyl Amount: 25 mcg Route: I.V. I, the attending physician, have reviewed and verified all procedure medications. Yes, all medications given per verbal order History/Risk Factors Hypertension: Yes Dyslipidemia: Yes Peripheral Arterial Disease (PAD): No Myocardial Infarction (WA): Yes Obesity: No Renal Disease: No Prior Interventions PCI: Yes CABG: No Valve Surgery: No Date of PCI: 01/29/2018 Report Signatures Finalized by Eder Bass MD on 05/28/2023 10:14 AM
[2023-05-28] MEDS: diphenhydrAMINE 50 mg Capsule PO (06:08)
[2023-05-28] MEDS: aspirin 325 mg Tablet PO (06:08)
--- NOTE | 2023-05-28 07:53 | W.PM.OPSFHP ---
Same Day Surgery H&P Indication for Procedure/HPI DATE OF PROCEDURE: May 28, 2023 CHIEF COMPLAINT/INDICATIONFOR SURGICAL PROCEDURE: Dyspnea on exertion/abnormal stress test PREOP DIAGNOSIS: Dyspnea on exertion/abnormal stress test PLANNED PROCEDURE: Operation Date: 05/28/23 07:[address] [facility] [address]16,I65.29,I25.5,I50.9(Left) - Eder Bass M.D Possible percutaneous coronary intervention 67-year-old woman with past medical history of CAD has been having worsening dyspnea on exertion. Echo shows drop in LV systolic function from 40% to 30%. Stress test was abnormal. Plan for coronary angiogram with possible percutaneous coronary intervention. Risks and benefits of the procedure were discussed with the patient. Medications/Allergies* Home Medications Medication Instructions Recorded Confirmed Type gabapentin 800 mg tablet 800 mg PO DAILY 12/01/19 05/27/23 History trazodone 150 mg tablet 150 mg PO DAILY 12/01/19 05/27/23 History simvastatin 40 mg tablet 40 mg PO DAILY 04/21/20 05/27/23 History tramadol 50 mg tablet 50 mg PO DAILY 07/06/21 05/27/23 History clopidogrel 75 mg tablet (Plavix) 75 mg PO DAILY 07/10/21 05/27/23 History aspirin 325 mg tablet 325 mg PO DAILY 06/21/22 05/27/23 History clindamycin HCl 300 mg capsule 300 mg PO TID 05/26/23 05/27/23 History lisinopril 10 mg tablet 10 mg PO DAILY 05/26/23 05/27/23 History varenicline 1 mg tablet 1 mg PO BID 05/26/23 05/27/23 History Allergies/Adverse Reactions Allergy/AdvReac Type Severity Reaction Status Date / Time Penicillins Allergy Intermediate Passed out Verified 05/27/23 07:09 Current Medications: Generic Name Dose Route Start Last Admin Trade Name Freq PRN Reason Stop Dose Admin Sodium Chloride 1,000 mls @ 50 mls/hr 05/28/23 06:00 05/28/23 06:08 Sodium Chloride 0.9% IV 05/29/23 01:59 Not Given .Q20H ONE Pertinent History/Comorbid Conditions* Medical History (Updated 05/26/23 @ 15:44 by Jose Ludwig DO) Cervical disc disorder with myelopathy of mid-cervical region Gait disorder History of anemia History of COPD History of hypertension History of ST elevation myocardial infarction (STEMI) Hx of cardiac arrest Hx of completed stroke Hx pulmonary embolism Mild cognitive impairment Right groin hernia Surgical History (Updated 03/14/23 @ 11:34 by Jona Sims MD) History of colonoscopy History of coronary artery stent placement History of PTCA Hx of hemorrhoidectomy Social History Smoking and tobacco/nicotine status: current every day tobacco/nicotine user Alcohol intake: never Substance/Drug Use: never Lives independently: Yes Marital status: Life Partner Current occupational status: retired Pertinent Exam Findings alert, oriented x 3, clear to auscultation bilaterally and regular rate & rhythm Conscious Sedation Assessment PATIENT ASSESSED PRIOR TO SEDATION, WITH NO CHANGE NOTED: Yes AIRWAY EVAL/ANESTHESIA PLAN: normal airway, ASA III, Local Anesthesia, Risks, benefits & alternatives of sedation and/or procedure discussed and Patient agrees to continue as planned ADDITIONAL INFORMATION: Moderate sedation Recommendations Surgery/Procedure today (Left heart cath with possible percutaneous coronary intervention) Coding Level of Care Code Acute Code for Chg Fwd Diagnoses
--- NOTE | 2023-05-28 08:30 | SUR.PHASEII ---
Received the patient back from the pathology lab technician via wheelchair s/p Diagnostic [facility]. Patient ambulated to the cot without difficulty. A & 0 x 3. awake overnight monitor placed and vital signs obtained. TR band intact to the right wrist. No bleeding or hematoma noted. Palpable radial pulse. No other assessment changes noted from pre cath assessment. Family at bedside. No concerns voiced at this time.
--- NOTE | 2023-05-28 09:30 | SUR.PHASEII ---
Letting the air out of the TR band per protocol.
--- NOTE | 2023-05-28 10:30 | SUR.PHASEII ---
TR band off per protocol. Site cleansed with warm water and patted dry. No bleeding or hematoma noted. Palpable radial pulse. A large bandaid was applied and lightly secured with coban. No other assessment changes at this time.
--- NOTE | 2023-05-28 10:55 | SUR.PHASEII ---
Dr. Bass at bedside. Cath findings reported the the patient and his spouse. Will DC home soon.
--- NOTE | 2023-05-28 11:38 | SUR.PHASEII ---
Patient dc'd home via wheelchair with spouse.
== END 2023-05-28 05:39 | disposition home or self-care (01) ==
PROVIDERS: Internal Medicine; PCP Nurse Practitioner Family; Visit Provider Internal Medicine Cardiovascular Disease
DX: I25.10 Atherosclerotic heart disease of native coronary artery without angina pectoris (principal); I25.82 Chronic total occlusion of coronary artery; I10 Essential (primary) hypertension; Z79.82 Long term (current) use of aspirin; J44.9 Chronic obstructive pulmonary disease, unspecified; I25.2 Old myocardial infarction; Z86.73 Personal history of transient ischemic attack (TIA), and cerebral infarction without residual deficits; Z86.711 Personal history of pulmonary embolism
CPT/HCPCS: 93458; 96365; 99152; C1769; C1887; C1894; J1644; J2250; J3010; J3490; J7030; Q0163; Q9967

== ENCOUNTER 2023-06-13 09:23 | Outpatient (CLI) | payer MEDICARE, SELFPAY ==
--- NOTE | 2023-06-13 09:33 | CT_ITS ---
WS: [id number] LDCT LUNG CANCER SCREENING HISTORY: NICOTINE DEPENDENCE CIGARETTES TECHNIQUE: Axial imaging performed from the apices to 1 cm below the costophrenic angles. Coronal and sagittal reformats are submitted with axial MIP series. All CT scans at [facility] use at least one of these dose optimization techniques: automated exposure control; mA and/or kV adjustment per patient size (includes targeted exams where dose is matched to clinical indication); or iterativ e reconstruction. DLP: 67.71 mGy.cm DIvol: Mean CTDIvol: 1.20 (mGy) COMPARISON: 02/11/2018 Diagnostic quality: Mild motion artifact. Lungs: Benign granuloma RIGHT apex. Benign granuloma LEFT upper lobe. No mass or nodule. No pneumonia . Heart: Normal size heart with no pericardial effusion.. Moderate calcifications scattered in the kavni nary arteries. Other findings: Heart is top normal size. No mediastinal or hilar adenopathy. Moderate atherosclerosi s aorta with no aneurysm. Normal sized pulmonary artery. No adrenal mass. Gallbladder is contracted. IMPRESSION: CT/CT lung screening [id number] LUNG-RADS: 2-Benign Appearance or Behavior FOLLOW UP: 12 Month: Continue annual screening with LDCT OTHER FINDINGS (S MODIFIER): None.
== END 2023-06-13 09:24 | disposition home or self-care (01) ==
LOC: RAD 09:23
PROVIDERS: PCP Nurse Practitioner Family; Visit Provider Family Medicine
DX: Z12.2 Encounter for screening for malignant neoplasm of respiratory organs (principal); F17.210 Nicotine dependence, cigarettes, uncomplicated
CPT/HCPCS: 71271

== ENCOUNTER → 2023-07-09 14:18 | Outpatient (BNVA) | payer MEDICARE, SELFPAY | PROVIDERS: PCP Nurse Practitioner Family; Visit Provider Nurse Practitioner Family | DX: I25.5 Ischemic cardiomyopathy (principal); F17.200 Nicotine dependence, unspecified, uncomplicated | CPT/HCPCS: 99214 ==

== ENCOUNTER → 2023-08-13 14:00 | Outpatient (BNVA) | payer MEDICARE, SELFPAY | PROVIDERS: PCP Nurse Practitioner Family; Visit Provider Internal Medicine Cardiovascular Disease | DX: I25.5 Ischemic cardiomyopathy (principal); I25.10 Atherosclerotic heart disease of native coronary artery without angina pectoris; E78.5 Hyperlipidemia, unspecified; I65.23 Occlusion and stenosis of bilateral carotid arteries; F17.200 Nicotine dependence, unspecified, uncomplicated; I10 Essential (primary) hypertension | CPT/HCPCS: 99214 ==

== ENCOUNTER 2023-08-22 12:48 | Outpatient (CLI) | payer MEDICARE, SELFPAY ==
--- NOTE | 2023-08-22 13:15 | USCV_ITS ---
Fer Charles Age: 67 Gender: M : 1955 Exam Date: 08/22/2023 13:18 Ordering Phys: Jona Sims MD ([email or web address]) Technologist: Exam Location: [facility] [place] Indication: cardiomyopathy BP: 120 / 70 HR: 83 Rhythm: Sinus Technical Quality: Adequate MEASUREMENTS (Male / Female) Normal Values 2D ECHO LV Diastolic Diameter PLAX 4.8 cm 4.2 - 5.9 / 3.9 - 5.3 cm LV Systolic Diameter PLAX 4.2 cm IVS Diastolic Thickness 1.2 cm 0.6 - 1.0 / 0.6 - 0.9 cm IVS Systolic Thickness 1.6 cm LVPW Diastolic Thickness 1.4 cm 0.6 - 1.0 / 0.6 - 0.9 cm LVPW Systolic Thickness 1.5 cm LVOT Diameter 2.0 cm LV Ejection Fraction 2D Teich 29.3 % LV Ejection Fraction MOD 2C 39.2 % LV Ejection Fraction 2C AL 37.1 % LA Diameter 4.6 cm IVC Diameter 1.3 cm M-MODE Aortic Annulus Diameter 3.6 cm LA Ao Ratio MM 1.2 MV E Point Septal Separation 1.5 cm FINDINGS Left Ventricle Diffuse hypokinesia of the left ventricle with an ejection fraction of 38% Right Ventricle Normal right ventricular size and systolic function. Right Atrium Normal right atrial size. Left Atrium Mildly increased left atrial size. Mitral Valve Thickened mitral valve. Aortic Valve Thickened aortic valve. Tricuspid Valve No gross abnormalities noted Pulmonic Valve No gross abnormalities Pericardium No pericardial effusion. Aorta Normal aortic annulus size. IVC Normal inferior vena cava. CONCLUSIONS Diffuse hypokinesia of the left ventricle with an ejection fraction of 38%. Mildly dilated LV cavityMildly increased left atrial size. Thickened mitral valve. Thickened aortic valve. No pericardial effusion. There are no intracardiac masses. Compared to the study from 02/20/2023, the LV ejection fraction has increased improved from 30 to 38% Dr Jona Sims MD [facility] (Electronically Signed) Final Date: 22 August 2023 19:00 S
== END 2023-08-22 12:49 | disposition home or self-care (01) ==
LOC: RAD 12:50
PROVIDERS: PCP Nurse Practitioner Family; Visit Provider Internal Medicine Cardiovascular Disease
DX: I42.9 Cardiomyopathy, unspecified (principal)
CPT/HCPCS: 93308

== ENCOUNTER → 2023-09-26 09:24 | Outpatient (BNVA) | payer MEDICARE, SELFPAY | PROVIDERS: PCP Nurse Practitioner Family; Visit Provider Anesthesiology Pain Medicine | DX: M54.12 Radiculopathy, cervical region; M50.020 Cervical disc disorder with myelopathy, mid-cervical region, unspecified level; M47.812 Spondylosis without myelopathy or radiculopathy, cervical region | CPT/HCPCS: 99204 ==

== ENCOUNTER → 2023-10-10 12:58 | Outpatient (BNVA) | payer MEDICARE, SELFPAY | PROVIDERS: PCP Nurse Practitioner Family; Visit Provider Anesthesiology Pain Medicine | DX: M79.18 Myalgia, other site (principal); M54.12 Radiculopathy, cervical region; M50.020 Cervical disc disorder with myelopathy, mid-cervical region, unspecified level; M47.812 Spondylosis without myelopathy or radiculopathy, cervical region | CPT/HCPCS: 20553; 99214; J1030; J3490 ==